=== PATIENT | female | born 1980 | race Caucasian/White ===

== ENCOUNTER 2018-01-23 | Outpatient (CLI) | END 2018-01-23 21:26 | disposition short-term general hospital (02) | CPT/HCPCS: A0425; A0426 ==

== ENCOUNTER 2018-01-23 15:26 | Emergency (ER) | payer OTHER ==
[2018-01-23] MEDS ORDERED: LIDOCAINE-MPF 2% 6 ML in SODIUM CHLORIDE 0.9% 50 ML IV STA (15:44)
[2018-01-23] MEDS ORDERED: SODIUM CHLORIDE 0.9% 1,000 ML IV ONE ×4 (15:52→19:25)
[2018-01-23] MEDS ORDERED: ONDANSETRON 4 MG/2 ML VIAL IVP STA ×2 (15:52→18:48)
--- NOTE | 2018-01-23 15:56 | ED Physician Documentation ---
History of Present Illness - Stated complaint Stated Complaint: LOW ABD PX/VOMITTING - Chief complaint Chief Complaint: Abd Pain - History obtained from History obtained from: Patient, Family - History of Present Illness Timing: Today Pain level max: 10 Pain level now: 10 Improved by: toradol in the ED Worsened by: nothing - Additonal information Additional information: Patient is a 37-year-old female who presents to the emergency department with right flank pain today. She was seen at [facility] earlier today for same , CT scan showed a 5 mm distal right UVJ stone. She states that her pain was well controlled with Toradol, was sent home with [place], motrin, Zofran and Flomax. States that her pain is now uncontrolled and she is vomiting. Has had 2 prior kidney stones. None of needed to be removed. Denies any fevers, but occasionally feels chilled. No dysuria. No hematuria. Review of Systems Ten Systems: 10 systems reviewed and negative Constitutional: denies: Fever Eyes: denies: Decreased vision Ears: denies: Ear pain Nose: denies: Rhinorrhea / runny nose, Congestion Cardiac: denies: Palpitations Respiratory: denies: Dyspnea, Cough GI: reports: Nausea, Vomiting. denies: Diarrhea, Hematemesis, Bloody / black stool : denies: Dysuria, Frequency, Hesitancy Skin: denies: Rash Musculoskeletal: denies: Neck pain, Back pain Neurologic: denies: Headache PD PAST MEDICAL HISTORY - Past Medical History Past Medical History: Yes : Kidney stones - Present Medications Home Medications: Ambulatory Orders Medication Instructions Recorded Confirmed No Known Home Medications [No 01/23/18 01/23/18 Known Home Medications] - Allergies Allergies/Adverse Reactions: Allergies Allergy/AdvReac Type Severity Reaction Status Date / Time No Known Drug Allergies Allergy Verified 01/23/18 15:37 - Living Situation Living Situation: reports: With family Living Arrangement: reports: At home - Social History Does the pt have substance abuse?: No - Family History Family history: reports: Non contributory PD ED PE NORMAL - Vitals Vital signs reviewed: Yes - General General: Alert and oriented X 3, Well developed/nourished, Other (appears in pain) - HEENT HEENT: Moist mucous membranes - Neck Neck: Supple, no meningeal sign - Cardiac Cardiac: RRR - Respiratory Respiratory: No respiratory distress, Clear bilaterally - Abdomen Abdomen: Soft, Non tender, Non distended - Back Back: No CVA TTP, No spinal TTP - Derm Derm: Warm and dry - Extremities Extremities: No edema - Neuro Neuro: Alert and oriented X 3 Results - Vitals Vitals: Vital Signs - 24 hr 01/23/18 01/23/18 01/23/18 15:32 16:40 17:41 Temperature 37.6 C H 38.4 C H Heart Rate 146 H 128 H 117 H Respiratory 20 22 16 Rate Blood Pressure 116/83 H 137/94 H 118/84 H O2 Saturation 97 96 96 01/23/18 01/23/18 01/23/18 18:15 19:22 19:57 Temperature 37.6 C H Heart Rate 124 H 123 H 122 H Respiratory 21 16 16 Rate Blood Pressure 119/83 H 91/75 105/74 O2 Saturation 100 96 95 01/23/18 20:28 Temperature 37.3 C Heart Rate 156 H Respiratory 22 Rate Blood Pressure 117/61 O2 Saturation 99 Oxygen O2 Source Room air - Labs Labs: Laboratory Tests 01/23/18 01/23/18 01/23/18 15:59 15:59 16:00 WBC 9.8 RBC 4.35 Hgb 13.6 Hct 40.5 MCV 93.0 MCH 31.3 H MCHC 33.7 RDW 13.3 Plt Count 201 MPV 8.8 Neut # (Auto) 9.5 H Lymph # (Auto) 0.2 L [place] # (Auto) 0.1 Eos # (Auto) 0.0 Baso # (Auto) 0.0 Absolute Nucleated RBC 0.00 Nucleated RBC % 0.0 Sodium 133 L Potassium 3.6 Chloride 101 Carbon Dioxide 23 Anion Gap 9.0 BUN 22 H Creatinine 1.3 H Estimated GFR (MDRD) 46 L Glucose 119 H Lactic Acid Calcium 9.0 Total Bilirubin 1.0 AST 27 ALT 19 Alkaline Phosphatase 84 Total Protein 7.9 Albumin 4.2 Globulin 3.7 Albumin/Globulin Ratio 1.1 Lipase 31 Urine Color YELLOW Urine Clarity CLOUDY Urine pH 6.0 Ur Specific [place] 1.025 Urine Protein NEGATIVE Urine Glucose (UA) NEGATIVE Urine Ketones NEGATIVE Urine Occult Blood TRACE-INTA Urine Nitrite NEGATIVE Urine Bilirubin NEGATIVE Urine Urobilinogen 0.2 (NORMAL) Ur Leukocyte Esterase SMALL H Urine RBC 0-5 Urine WBC 6-10 H Urine WBC Clumps PRESENT Ur Squamous Epith Cells MOD Squamous H Urine Bacteria None Seen Ur Microscopic Review INDICATED Urine Culture Comments NOT INDICATED Urine HCG, Qual 01/23/18 01/23/18 01/23/18 16:00 16:30 18:01 WBC RBC Hgb Hct MCV MCH MCHC RDW Plt Count MPV Neut # (Auto) Lymph # (Auto) [place] # (Auto) Eos # (Auto) Baso # (Auto) Absolute Nucleated RBC Nucleated RBC % Sodium Potassium Chloride Carbon Dioxide Anion Gap BUN Creatinine Estimated GFR (MDRD) Glucose Lactic Acid 0.8 Calcium Total Bilirubin AST ALT Alkaline Phosphatase Total Protein Albumin Globulin Albumin/Globulin Ratio Lipase Urine Color LT. YELLOW Urine Clarity CLEAR Urine pH 6.5 Ur Specific [place] 1.025 1.010 Urine Protein NEGATIVE Urine Glucose (UA) NEGATIVE Urine Ketones NEGATIVE Urine Occult Blood NEGATIVE Urine Nitrite NEGATIVE Urine Bilirubin NEGATIVE Urine Urobilinogen 0.2 (NORMAL) Ur Leukocyte Esterase TRACE H Urine RBC 0-5 Urine WBC 6-10 H Urine WBC Clumps Ur Squamous Epith Cells FEW Squamous Urine Bacteria None Seen Ur Microscopic Review INDICATED Urine Culture Comments INDICATED Urine HCG, Qual NEGATIVE PD MEDICAL DECISION MAKING - ED course Complexity details: reviewed old records ([place] ED record from today - 5mm distal ureteral stone w/ moderate hydronephrosis. ), reviewed results, re- evaluated patient, considered differential, d/w patient, d/w medical consultant ED course: Patient is a 37-year-old female who presents to the emergency department with a kidney stone that was diagnosed earlier today at [facility]. 5 mm distal right ureteral stone. She has had continued pain and vomiting since that time. Unable to keep her medications down. She appears to have a UTI as well here, given IV Rocephin. She spiked a fever in the emergency department and blood cultures were drawn as well as a lactate. She was then given IV fluid boluses. Discussed the case with Dr. Siddiqui ([id number]), urology at [facility] who recommends admission here for further monitoring and if her fever does not break that she should be transferred. Attempted to contact our hospitalist here at 1800, no call back received. Patient's was further monitored in the emergency department had continued tachycardia and hypotension , a second IV was placed and more IV fluids given. Do not think she should be admitted to the hospital without urology, therefore I contacted [facility] for transfer at 1850. D/w Dr. Casanova (hospitalist at [facility]) at 2024 and graciously accepts in transfer. This document was made in part using voice recognition software. While efforts are made to proofread this document, sound alike and grammatical errors may occur. - Sepsis Event Vital Signs: Vital Signs - 24 hr 01/23/18 01/23/18 01/23/18 15:32 16:40 17:41 Temperature 37.6 C H 38.4 C H Heart Rate 146 H 128 H 117 H Respiratory 20 22 16 Rate Blood Pressure 116/83 H 137/94 H 118/84 H O2 Saturation 97 96 96 01/23/18 01/23/18 01/23/18 18:15 19:22 19:57 Temperature 37.6 C H Heart Rate 124 H 123 H 122 H Respiratory 21 16 16 Rate Blood Pressure 119/83 H 91/75 105/74 O2 Saturation 100 96 95 01/23/18 20:28 Temperature 37.3 C Heart Rate 156 H Respiratory 22 Rate Blood Pressure 117/61 O2 Saturation 99 Oxygen O2 Source Room air Departure - Departure Disposition: 02 Transfer Acute Care Hosp Clinical Impression: Ureteral stone, Pyelonephritis, Tachycardia Condition: Stable Discharge Date/Time: 01/23/18 21:25
[2018-01-23 16:07] LABS: BASOPHILS % (AUTO) 0.1 %; HGB - HEMOGLOBIN 13.6 g/dL (12.0-16.0); LYMPHOCYTES # (AUTO) 0.2 10^3/uL (1.5-3.5); LYMPHOCYTES % (AUTO) 1.9 %; MEAN CORPUSCULAR HEMOGLOBIN 31.3 pg (27.0-31.0); MEAN CORPUSCULAR HGB CONC 33.7 g/dL (32.0-36.0); MEAN PLATELET VOLUME 8.8 fL (7.9-10.8); MONOCYTES # (AUTO) 0.1 10^3/uL (0.0-1.0); MONOCYTES % (AUTO) 0.7 %; NEUTROPHILS # (AUTO) 9.5 10^3/uL (1.5-6.6); NEUTROPHILS % (AUTO) 97.3 %; PLT - PLATELET COUNT 201 10^3/uL (130-450); RED BLOOD COUNT 4.35 10^6/uL (4.20-5.40); RED CELL DISTRIBUTION WIDTH 13.3 % (12.0-15.0); WHITE BLOOD COUNT 9.8 x10^3/uL (4.8-10.8)
[2018-01-23 16:11] LABS: BILIRUBIN,URINE NEGATIVE (NEGATIVE); GLUCOSE, URINE (UA) NEGATIVE (NEGATIVE); KETONES,URINE (UA) NEGATIVE (NEGATIVE); LEUKOCYTE ESTERASE, URINE SMALL (NEGATIVE); NITRITE,URINE NEGATIVE (NEGATIVE); OCCULT BLOOD,URINE TRACE-INTA (NEGATIVE); PROTEIN,URINE NEGATIVE (NEGATIVE); UROBILINOGEN,URINE 0.2 (NORMAL) E.U./dL (NORMAL)
[2018-01-23 16:14] LABS: CLARITY,URINE CLOUDY (CLEAR)
[2018-01-23 16:15] LABS: HCG UR QUAL NEGATIVE
[2018-01-23 16:16] LABS: BACTERIA,URINE None Seen /HPF (None Seen); RBC,URINE 0-5 /HPF (0-5); SQUAMOUS EPITHELIAL CELL,UR MOD Squamous (<= Few); WBC CLUMPS,URINE PRESENT
[2018-01-23 16:20] LABS: ALBUMIN 4.2 g/dL (3.2-5.5); ALBUMIN/GLOBULIN RATIO 1.1 (1.0-2.2); CREATININE 1.3 mg/dL (0.4-1.0); TOTAL PROTEIN 7.9 g/dL (6.7-8.2)
[2018-01-23] MEDS ORDERED: LORazepam 2 MG/ML VIAL IVP STA ×2 (16:43→20:30)
[2018-01-23] MEDS ORDERED: KETOROLAC 60 MG/2 ML VIAL IVP STA (16:43)
[2018-01-23 16:47] LABS: BILIRUBIN,URINE NEGATIVE (NEGATIVE); GLUCOSE, URINE (UA) NEGATIVE (NEGATIVE); KETONES,URINE (UA) NEGATIVE (NEGATIVE); LEUKOCYTE ESTERASE, URINE TRACE (NEGATIVE); NITRITE,URINE NEGATIVE (NEGATIVE); OCCULT BLOOD,URINE NEGATIVE (NEGATIVE); PH,URINE 6.5 PH (5.0-7.5); PROTEIN,URINE NEGATIVE (NEGATIVE); UROBILINOGEN,URINE 0.2 (NORMAL) E.U./dL (NORMAL)
[2018-01-23 16:57] LABS: BACTERIA,URINE None Seen /HPF (None Seen); CLARITY,URINE CLEAR (CLEAR); RBC,URINE 0-5 /HPF (0-5); SQUAMOUS EPITHELIAL CELL,UR FEW Squamous (<= Few)
[2018-01-23] MEDS ORDERED: cefTRIAXone 1 GM VIAL IVP STA (17:43)
[2018-01-23] MEDS ORDERED: HYDROmorphone 2 MG/ML VIAL IVP STA (18:48)
[2018-01-23] MEDS ORDERED: ACETAMINOPHEN 1,000 MG/100 ML 100 ML IV STA (20:20)
[2018-01-23 20:36] VITALS: BP 117/61
== END 2018-01-23 21:25 | disposition short-term general hospital (02) ==
LOC: ED 15:26
DX: N20.1 Calculus of ureter (principal); R00.0 Tachycardia, unspecified; I95.9 Hypotension, unspecified
CPT/HCPCS: 36415; 80053; 81001; 81025; 83605; 83690; 85025; 87040; 87086; 96361; 96365; 96367; 96375; 96376; 99284; 99285; J0131; J1170; J2060; J7040; 81003; 87181